=== PATIENT | male | born 1980 | race Hispanic/Latino ===

== ENCOUNTER 2021-03-27 15:24 | Emergency (ER) | payer SELFPAY ==
[2021-03-27] MEDS ORDERED: Adacel Vial IM ONE ×2 (15:36→15:41)
[2021-03-27 15:37] VITALS: BP 160/97; PULSE 89; O2SAT 98
[2021-03-27] MEDS ORDERED: HYDROCODONE-ACETAMIN 10-325 MG PO ONE (15:41)
[2021-03-27] MEDS ORDERED: XYLOCAINE 1% HCL 20 ML MDV ONE (16:01)
[2021-03-27] MEDS ORDERED: KEFZOL 1 GM IM ONE (16:06)
--- NOTE | 2021-03-27 16:10 | ERPHSYRPT ---
- History of Present Illness Source: patient Exam Limitations: language barrier Patient Subjective Stated Complaint: Pt was using a nail gun and got shot with it in his back side of his left hand, the nail is a 3 inch nail and approx 2.25 inches is showing Triage Nursing Assessment: Pt brought to the ER by his friend, hypertensive, rates pain as 4-5/10, no blood coming from the wound, puleses normal, doesn't appear to be in any distress Physician History: Nail from nailgun vs L hand at work. Tetanus not UTD. Pt is R handed and denies other/previous injury. Occurred: just prior to arrival Method of Injury: other (Nail vs L hand) Extremities Pain Location: hand: left (Nail L hand/good hemostasis/Good distal capillary return and sensation) Modifying Factors: Improves With: movement Associated Symptoms: none Allergies/Adverse Reactions: Penicillins Allergy (Verified 03/27/21 15:37) Hx Tetanus, Diphtheria Vaccination/Date Given: No Travel Risk - International Travel Have you traveled outside of the country in past 3 weeks: No - Coronavirus Screening Are you exhibiting any of the following symptoms?: No Close contact with a COVID-19 positive Pt in past 14-21 Days: No - Vaccine Status Have you recieved a Covid-19 vaccination: No - Review of Systems Constitutional: No Symptoms Eyes: No Symptoms Ears, Nose, & Throat: No Symptoms Respiratory: No Symptoms Cardiac: No Symptoms Abdominal/Gastrointestinal: No Symptoms Genitourinary Symptoms: No Symptoms Skin: No Symptoms Neurological: No Symptoms Psychological: No Symptoms Endocrine: No Symptoms Hematologic/Lymphatic: No Symptoms Immunological/Allergic: No Symptoms - Past Medical History Pertinent Past Medical History: No - Past Surgical History Past Surgical History: No - Social History Smoking Status: Never smoker Exposure to second hand smoke: No Drug Use: none Patient Lives Alone: No Significant Family History: no pertinent family hx - Nursing Vital Signs Nursing Vital Signs: Initial Vital Signs Temperature 98.5 F 03/27/21 15:29 Pulse Rate 89 03/27/21 15:29 Blood Pressure 160/97 03/27/21 15:29 O2 Sat by Pulse Oximetry 98 03/27/21 15:29 Pain Scale Pain Intensity 4 Hypertensive - Physical Exam General Appearance: no apparent distress Eyes, Ears, Nose, Throat Exam: normal ENT inspection Neck Exam: normal inspection, non-tender, supple, full range of motion, No Brudzinski, No Kernig's, No meningismus Cardiovascular/Respiratory Exam: chest non-tender, normal breath sounds, regular rate/rhythm, heart sounds normal Abdominal Exam: non-tender, soft Back Exam: normal inspection, normal range of motion, No CVA tenderness Shoulder Exam: normal inspection, non-tender, no evidence of injury Elbow/Forearm Exam: normal inspection, non-tender, no evidence of injury Wrist Exam: normal inspection, non-tender, no evidence of injury Hand Exam: soft tissue tenderness (Nail L dorsal hand/good hemostasis/Good distal capillary return and sensation) Neuro/Tendon Exam: normal sensation, normal motor functions, normal tendon functions, responds to pain, no evidence tendon injury, No motor deficit, No sensory deficit Mental Status Exam: alert, oriented x 3, cooperative Skin Exam: normal color, warm, dry SpO2 Interpretation: normal SpO2: 98 O2 Delivery: Room Air - Course Nursing assessment & vital signs reviewed: Yes - Radiology Exams Hand X-ray Interpretation: Discussed w/ radiologist (Nail L dorsal hand wo bone injury/[id number]-[id number]-glve removed successfully) Ordered Tests: Active Orders 24 hr Category Date Time Status HAND (MINIMUM 3 VIEWS) Routine Exams 03/27/21 16:14 Completed HAND (MINIMUM 3 VIEWS) Stat Exams 03/27/21 16:07 Taken Medication Summary Discontinued Medications Generic Name Dose Route Start Last Admin Trade Name Kenzie PRN Reason Stop Dose Admin Hydrocodone Bitart/Acetaminophen 1 tablet 03/27/21 15:41 03/27/21 15:42 Hydrocodone-Acetamin 10-325 Mg PO 03/27/21 15:42 1 tablet STAT ONE Administration Cefazolin Sodium 1 g 03/27/21 16:06 03/27/21 16:19 Kefzol 1 Gm IM 03/27/21 16:07 1 g STAT ONE Administration Cefazolin Sodium Confirm 03/27/21 16:12 Kefzol 1 Gm Administered 03/27/21 16:13 Dose 1 g .ROUTE .STK-MED ONE Diphtheria/Tetanus/Acell Pertussis 0.5 ml 03/27/21 15:36 03/27/21 15:42 Adacel Vial IM 03/27/21 15:37 0.5 ml .ONCE ONE Administration Diphtheria/Tetanus/Acell Pertussis Confirm 03/27/21 15:41 Adacel Vial Administered 03/27/21 15:42 Dose 0.5 ml IM .STK-MED ONE Lidocaine HCl Confirm 03/27/21 16:01 Xylocaine 1% Hcl 20 Ml Mdv Administered 03/27/21 16:02 Dose 1 ml .ROUTE .STK-MED ONE - Progress Progress: improved Progress Note: 03/27/21 16:41 1% Lido L dorsal hand infiltrated around FB/Removed w pliers, retrograde wo comps Norco10 po x1 before procedure 1gm Im IM Kefzol Tdap Counseled pt/family regarding: diagnosis, need for follow-up, rad results - Departure Departure Disposition: Home Clinical Impression: Foreign body of left hand Condition: Stable Critical Care Time: No Referrals: DOCTOR,NO FAMILY [Primary Care Provider] - Instructions: Hand Pain (DC), Removal of Foreign Body in Skin Additional Instructions: Wash wound twice a day with soap/water Watch for signs of infection-redness/pain/pus/temperature greater than 100.5 Motrin/tylenol fort pain Prescriptions: Cephalexin Mh 500 mg [Keflex 500 mg] 500 mg PO TID 7 Days #21
[2021-03-27] MEDS ORDERED: KEFZOL 1 GM ONE (16:12)
--- NOTE | 2021-03-27 16:29 | XRAY ---
Indication: Foreign body removal. Comparison: Taken earlier in the day. 3 view left hand demonstrates successful complete removal of previous nail. No new bony, articular, or soft tissue abnormalities.
--- NOTE | 2021-03-28 11:54 | XRAY ---
Indication: Nail injury. Comparison: None 3 view left hand demonstrates nail in the soft tissues posterior to base 1st/2 metacarpals. No other bony, articular, or soft tissue abnormalities.
== END 2021-03-27 16:54 | disposition home or self-care (01) ==
LOC: ED 15:24
DX: S61.442A Puncture wound with foreign body of left hand, initial encounter (principal); W29.4XXA Contact with nail gun, initial encounter
CPT/HCPCS: 73130; 90471; 90715; 96372; 99284; J0690; A9270-GY